=== PATIENT | female | born 1960 | race Caucasian/White ===

== ENCOUNTER 2018-01-24 07:47 | Day surgery (SDC) | payer OTHER ==
[2018-01-21 16:30] LABS: BASOPHILS # (AUTO) 0.1 X10'3 (0-0.2); BASOPHILS % (AUTO) 0.9 % (0-1); EOSINOPHILS # (AUTO) 0.2 X10'3 (0-0.9); EOSINOPHILS % (AUTO) 1.8 % (0-6); LYMPHOCYTES # (AUTO) 2.8 X10'3 (1.1-4.8); LYMPHOCYTES % (AUTO) 27.1 % (21-51); MEAN CORPUSCULAR HEMOGLOBIN 31.3 PG (27.0-31.0); MEAN CORPUSCULAR HGB CONC 33.4 % (33.0-36.5); MEAN CORPUSCULAR VOLUME 93.9 FL (78-98); MEAN PLATELET VOLUME 7.8 FL (7.4-10.4); MONOCYTES # (AUTO) 0.7 X10'3 (0-0.9); MONOCYTES % (AUTO) 6.9 % (2-12); NEUTROPHILS # (AUTO) 6.6 X10'3 (1.8-7.7); NEUTROPHILS % (AUTO) 63.3 % (42-75); PRE OP HEMATOCRIT 44.1 % (35.0-45.0); PRE OP HEMOGLOBIN 14.7 g/dL (12.0-16.0); PRE OP PLATELET COUNT 349 X10'3 (140-440); RED CELL DISTRIBUTION WIDTH 12.5 % (11.5-14.5)
[2018-01-21 16:50] LABS: CLARITY,URINE SLIGHTLY CLOUDY (Clear); COLOR,URINE YELLOW (Yellow); GLUCOSE, URINE NEGATIVE (Neg); KETONES,URINE NEGATIVE (Neg); LEUKOCYTE ESTERASE ,URINE NEGATIVE (Neg); NITRITES, URINE NEGATIVE (Neg); OCCULT BLOOD,URINE NEGATIVE (Neg); PH,URINE 7.5 (4.8-8.0); PROTEIN,URINE NEGATIVE (Neg); UROBILINOGEN,URINE 0.2 E.U/dL (0.2-1.0)
[2018-01-21 16:51] LABS: UA COLLECTION TYPE CLN CATCH MIDSTREAM
[2018-01-21 17:00] LABS: MUCUS STRANDS FEW /LPF (Neg); SQUAMOUS EPITHELIAL CELL,UR FEW /LPF (FEW)
[2018-01-21 17:01] LABS: BACTERIA,URINE FEW /HPF (Neg); RBC,URINE 0-2 /HPF (0-2); WBC,URINE 0-4 /HPF (0-4)
[2018-01-21 17:02] LABS: ALKALINE PHOSPHATASE 59 IU/L (46-116); BLOOD UREA NITROGEN 12 MG/DL (7-18); BUN/CREATININE RATIO 15.4 (6.6-38.0); CALCIUM 9.7 MG/DL (8.5-10.1); CHLORIDE 101 MMOL/L (99-107); CREATININE 0.78 MG/DL (0.40-0.90); PRE OP ALT 39 U/L (30-65); PRE OP ANION GAP 9 (8-16); PRE OP AST 24 U/L (10-37); PRE OP BILIRUB, TOTAL 0.5 MG/DL (0.0-1.0); PRE OP GLUCOSE 103 MG/DL (70-104); PRE OP POTASSIUM 3.8 MMOL/L (3.4-5.1); PRE OP SODIUM 141 MMOL/L (135-145); TOTAL CARBON DIOXIDE 30.6 MMOL/L (24-32); eGFR 76 ML/MIN
[~2018-01-24] VITALS: Ht 167.6 cm; Wt 85.5 kg
[~2018-01-24 07:47] MED LIST: ALPR0.5T9 PO; ARIP5TAB4 PO; ASCO500C15 PO; BUSP15TA14 PO; DULO-31 PO; GABA-532 PO; GLUC100017 PO; KRIL500C PO; LIOT50TA3 PO; MULT-38 PO; VITE1000C PO; ceFOXitin 2 GM ADDvantage bag 100 ML IV ONE; famotidine 20mg tablet PO ONE; ringers solution, lacted 1,000 ML IV SCH
[2018-01-24 08:15] VITALS: BP 131/77
[2018-01-24] MEDS ORDERED: morphine 4 MG/ML inj SYRINge IV PRN ×2 (08:25)
[2018-01-24] MEDS ORDERED: ringers solution, lacted 1,000 ML IV SCH (08:25)
[2018-01-24] MEDS ORDERED: meperidine/PF 25mg/ml syringe IV PRN ×2 (08:25)
[2018-01-24] MEDS ORDERED: ondansetron/PF 4mg/2ml inj IV PRN (08:25)
[2018-01-24] MEDS ORDERED: proCHLORperazine 10 MG/2 ml inj IV PRN (08:25)
[2018-01-24] MEDS ORDERED: dexamethasone sod phosphate 10mg/ml inj ONE (09:55)
[2018-01-24] MEDS ORDERED: sevoflurane 250ml liquid IH ONE (09:55)
[2018-01-24] MEDS ORDERED: midazolam 2 mg/2 ml injection ONE (10:01)
[2018-01-24] MEDS ORDERED: fentaNYL/PF 50MCG/1 ML 2ML syringe ONE (10:01)
[2018-01-24] MEDS ORDERED: ondansetron/PF 4mg/2ml inj ONE (10:09)
[2018-01-24] MEDS ORDERED: LIDOcaine 1%/PF 5ML 10 MG/ML VIAL ONE (10:09)
[2018-01-24] MEDS ORDERED: propofol inj 20 ML IV ONE (10:09)
[2018-01-24] MEDS ORDERED: ketorolac trometh. 30mg/ml inj. ONE (11:08)
[2018-01-24 11:40] VITALS: BP 152/88
[2018-01-24] MEDS: meperidine/PF 25mg/ml syringe IV PRN ×2 (11:48→12:11)
[2018-01-24 11:50] VITALS: BP 158/97
[2018-01-24 12:00] VITALS: BP 146/83
[2018-01-24 12:10] VITALS: BP 135/59
[2018-01-24 12:20] VITALS: BP 136/64
== END 2018-01-24 12:35 | disposition home or self-care (01) ==
LOC: PAS 07:47
PROVIDERS: ATTEND Obstetrics & Gynecology Obstetrics
DX: D25.0 Submucous leiomyoma of uterus (principal); N85.8 Other specified noninflammatory disorders of uterus; N95.0 Postmenopausal bleeding; F41.8 Other specified anxiety disorders; F32.9 Major depressive disorder, single episode, unspecified; F43.10 Post-traumatic stress disorder, unspecified; G47.33 Obstructive sleep apnea (adult) (pediatric); E89.0 Postprocedural hypothyroidism; E66.9 Obesity, unspecified; G89.29 Other chronic pain; M19.90 Unspecified osteoarthritis, unspecified site; Z68.30 Body mass index [BMI] 30.0-30.9, adult; Z87.891 Personal history of nicotine dependence; Z87.09 Personal history of other diseases of the respiratory system; Z90.49 Acquired absence of other specified parts of digestive tract; Z90.89 Acquired absence of other organs; Z79.891 Long term (current) use of opiate analgesic; Z79.1 Long term (current) use of non-steroidal anti-inflammatories (NSAID); Z91.048 Other nonmedicinal substance allergy status; Z79.899 Other long term (current) drug therapy; Z98.890 Other specified postprocedural states
CPT/HCPCS: 36415; 58561; 71046; 80053; 81001; 85025; 86885; 86900; 86901; 93005; J0694; J1100; J1885; J2001; J2175; J2250; J2405; J2704; J3010; J7030; J7120; A4355; A7000

== ENCOUNTER 2018-10-09 10:36 | Outpatient (CLI) | payer OTHER ==
[~2018-10-09 10:36] MED LIST changes: -BUSP15TA14 PO; +BUSP15TA8 PO; -LIOT50TA3 PO; +LIOT50TA6 PO; -ceFOXitin 2 GM ADDvantage bag 100 ML IV ONE; -famotidine 20mg tablet PO ONE; -ringers solution, lacted 1,000 ML IV SCH
== END 2018-10-09 23:59 | disposition home or self-care (01) ==
LOC: RAD 10:36
PROVIDERS: ATTEND Family Medicine
DX: M25.561 Pain in right knee (principal)
CPT/HCPCS: 73721

== ENCOUNTER 2019-03-15 13:38 | Emergency (ER) | payer OTHER ==
[~2019-03-15] VITALS: Ht 167.6 cm; Wt 101.0 kg
[~2019-03-15 13:38] MED LIST changes: +ARIP5TAB14 PO; -ARIP5TAB4 PO
[2019-03-15 13:42] VITALS: BP 157/99
[2019-03-15] MEDS ORDERED: ketorolac trometh inj. 60 MG/2 ML VIAL IM ONE (14:05)
--- NOTE | 2019-03-15 14:59 | NUR ---
pt discharged before rap assessment done
== END 2019-03-15 14:59 | disposition home or self-care (01) ==
LOC: ER 13:39
DX: S83.92XA Sprain of unspecified site of left knee, initial encounter (principal); S09.90XA Unspecified injury of head, initial encounter; Z79.899 Other long term (current) drug therapy; Y93.89 Activity, other specified; Y92.89 Other specified places as the place of occurrence of the external cause; Y99.9 Unspecified external cause status
CPT/HCPCS: 73564; 96372; 99283; J1885

== ENCOUNTER 2019-04-04 14:57 | Outpatient (CLI) | payer OTHER | END 2019-04-04 23:59 | disposition home or self-care (01) | LOC: RAD 14:57 | PROVIDERS: ATTEND Family Medicine | DX: S83.212A Bucket-handle tear of medial meniscus, current injury, left knee, initial encounter (principal); M94.262 Chondromalacia, left knee; S80.02XA Contusion of left knee, initial encounter; M25.462 Effusion, left knee; X58.XXXA Exposure to other specified factors, initial encounter; Y93.89 Activity, other specified; Y92.89 Other specified places as the place of occurrence of the external cause; Y99.8 Other external cause status | CPT/HCPCS: 73721 ==

== ENCOUNTER 2019-08-07 05:34 | Day surgery (SDC) | payer OTHER ==
[2019-07-30 11:08] LABS: BASOPHILS # (AUTO) 0.1 X10'3 (0-0.2); BASOPHILS % (AUTO) 1.1 % (0-1); EOSINOPHILS # (AUTO) 0.3 X10'3 (0-0.9); EOSINOPHILS % (AUTO) 3.5 % (0-6); LYMPHOCYTES # (AUTO) 1.9 X10'3 (1.1-4.8); LYMPHOCYTES % (AUTO) 22.9 % (21-51); MEAN CORPUSCULAR HEMOGLOBIN 32.6 PG (27.0-31.0); MEAN CORPUSCULAR HGB CONC 33.4 g/dL (33.0-36.5); MEAN CORPUSCULAR VOLUME 97.7 FL (78-98); MEAN PLATELET VOLUME 7.5 FL (7.4-10.4); MONOCYTES # (AUTO) 0.8 X10'3 (0-0.9); MONOCYTES % (AUTO) 9.5 % (2-12); NEUTROPHILS # (AUTO) 5.2 X10'3 (1.8-7.7); PRE OP HEMATOCRIT 44.1 % (35.0-45.0); PRE OP HEMOGLOBIN 14.7 g/dL (12.0-16.0); PRE OP PLATELET COUNT 320 X10'3 (140-440); RED BLOOD COUNT 4.51 X10'6 (4.20-5.60); RED CELL DISTRIBUTION WIDTH 13.4 % (11.5-14.5)
[2019-07-30 11:21] LABS: ALBUMIN 3.9 G/DL (3.4-5.0); ALKALINE PHOSPHATASE 71 IU/L (46-116); BLOOD UREA NITROGEN 10 MG/DL (7-18); BUN/CREATININE RATIO 10.4 (6.6-38.0); CALCIUM 9.5 MG/DL (8.5-10.1); CHLORIDE 101 MMOL/L (99-107); CREATININE 0.96 MG/DL (0.40-0.90); PRE OP ALT 39 U/L (30-65); PRE OP ANION GAP 5 (8-16); PRE OP AST 43 U/L (10-37); PRE OP BILIRUB, TOTAL 0.5 MG/DL (0.0-1.0); PRE OP GLUCOSE 119 MG/DL (70-104); PRE OP POTASSIUM 4.1 MMOL/L (3.4-5.1); PRE OP SODIUM 141 MMOL/L (135-145); TOTAL PROTEIN 7.8 G/DL (6.4-8.2); eGFR 59 ML/MIN
[~2019-08-07] VITALS: Ht 167.6 cm; Wt 90.7 kg
[2019-08-07] VITALS (9 sets, daily range): BP systolic 120–172; BP diastolic 70–100
[~2019-08-07 05:34] MED LIST changes: -ASCO500C15 PO; +CETI-194 PO; -GLUC100017 PO; -KRIL500C PO; -LIOT50TA6 PO; +MAGN400C PO; -MULT-38 PO; +NAPR-56 PO; +TRAZ-256 PO; -VITE1000C PO; +cefazolin/dext.iso 2gm/50ml 50 ML IV ONE; +famotidine 20mg tablet PO ONE; +ringers solution, lacted 1,000 ML IV SCH; +vancomycin 1,500 MG in NS 500ml IV soln IV ONE
[2019-08-07] MEDS ORDERED: LIDOcaine 1% (10mg/ml) 2ml vial ONE (05:59)
[2019-08-07] MEDS ORDERED: BUPIVAcaine/PF 2.5 mg/ml (0.25%) 30ml vial ONE (06:49)
[2019-08-07] MEDS ORDERED: cloNIDine hcl/PF 100mcg/ml inj ONE (07:14)
[2019-08-07] MEDS ORDERED: sevoflurane 250ml liquid IH ONE (07:18)
[2019-08-07] MEDS ORDERED: fentaNYL/PF 50MCG/1 ML 2ML syringe ONE (07:24)
[2019-08-07] MEDS ORDERED: midazolam 2 mg/2 ml injection ONE (07:25)
[2019-08-07] MEDS ORDERED: ringers solution, lacted 1,000 ML IV SCH (07:43)
[2019-08-07] MEDS ORDERED: proCHLORperazine 10 MG/2 ml inj IV PRN (07:45)
[2019-08-07] MEDS ORDERED: morphine 4 MG/ML inj SYRINge IV PRN (07:45)
[2019-08-07] MEDS ORDERED: meperidine/PF 25mg/ml syringe IV PRN (07:45)
[2019-08-07] MEDS ORDERED: labetalol 5mg/ml 20ml inj. IV PRN (07:45)
[2019-08-07] MEDS ORDERED: morphine 2 MG/ML inj. syringe IV PRN (07:45)
[2019-08-07] MEDS ORDERED: labetalol 20mg/4ml (5mg/ml) syringe IV PRN (07:45)
[2019-08-07] MEDS ORDERED: HYDROmorphone inj. 0.5 MG/0.5 ML DISP.SYRIN IV PRN ×2 (07:45)
[2019-08-07] MEDS ORDERED: ondansetron/PF 4mg/2ml inj IV PRN (07:45)
[2019-08-07] MEDS ORDERED: acetaminophen 1,000mg/100ml IV 100 ML IV PRN (07:45)
[2019-08-07] MEDS ORDERED: ROPIVAcaine 0.5% (5mg/ml) 30ml vial ONE (07:50)
[2019-08-07] MEDS ORDERED: LIDOcaine 1%/PF 5ML 10 MG/ML VIAL ONE (07:50)
[2019-08-07] MEDS ORDERED: LIDOcaine 2% (20mg/ml) 5ml vial ONE (07:50)
[2019-08-07] MEDS ORDERED: propofol inj 20 ML IV ONE (07:50)
[2019-08-07] MEDS ORDERED: dexamethasone sod phosphate 4mg/ml inj. ONE ×2 (07:50)
[2019-08-07] MEDS ORDERED: ondansetron/PF 4mg/2ml inj ONE (07:51)
[2019-08-07] MEDS ORDERED: ePHEDrine 50MG/ML INJ. ONE (07:53)
[2019-08-07] MEDS ORDERED: 0.9 % SODIUM CHLORIDE 10 ML VIAL ONE (07:54)
[2019-08-07] MEDS ORDERED: morphine 10mg/ml inj. ONE (08:18)
--- NOTE | 2019-08-07 09:54 | NUR ---
Received from OR via [facility] , accompanied by DR PAZ Anesthesiologist and report given by Anesthesiologist. VSS. SLEEPING COMFORTABLY. LEFT KNEE DSG CDI WITH LOCKED HINGE KNEE BRACE PRESENT. ICE APPLIED TO LEFT KNEE WITH LLE ELEVATED. LEFT FOOT WARM WITH STRONG PULSES PRESENT. IV PATENT #20 RIGHT HAND WITH LR 100MLS/HR
[2019-08-07] MEDS ORDERED: HYDROcodone/acetaminophen 10/325mg tab PO ONE (10:30)
--- NOTE | 2019-08-07 11:14 | NUR ---
VSS. STATES ADEQUATE PAIN RELIEF AND READINESS TO GO HOME. LEDT KNEE DSG CDI WITH LOCKED KNEE BRACE PRESENT AND ICE TO AREA. STRONG LEFT PEDAL PULSE WITH WARM FOOT. TOLERATING PO WELL. IV DC'D WITH CANNULA INTACT AND PRESSURE DSG APPLIED. DC INSTRUCTIONS REVIEWED WITH PT AND EVERARDO WHO BOTH VERBALIZED UNDERSTANDING. PT HAS WALKER AT HOME TO USE UNTIL LLE BLOCK WEARS OFF. DC HOME VIA WC TO PVT AUTO WITH EVERARDO TO RECEIVE. Addendum: 08/07/19 at 1129 by Shweta Schumacher RN Amended: Links added.
== END 2019-08-07 11:14 | disposition home or self-care (01) ==
LOC: PAS 05:34
PROVIDERS: ATTEND Orthopaedic Surgery
DX: S83.512A Sprain of anterior cruciate ligament of left knee, initial encounter (principal); S83.242A Other tear of medial meniscus, current injury, left knee, initial encounter; S83.282A Other tear of lateral meniscus, current injury, left knee, initial encounter; M94.262 Chondromalacia, left knee; M17.12 Unilateral primary osteoarthritis, left knee; G47.33 Obstructive sleep apnea (adult) (pediatric); F43.10 Post-traumatic stress disorder, unspecified; F41.8 Other specified anxiety disorders; G89.4 Chronic pain syndrome; J45.909 Unspecified asthma, uncomplicated; I10 Essential (primary) hypertension; G89.18 Other acute postprocedural pain; E66.9 Obesity, unspecified; Z68.32 Body mass index [BMI] 32.0-32.9, adult; Z98.890 Other specified postprocedural states; Z91.09 Other allergy status, other than to drugs and biological substances; Z79.899 Other long term (current) drug therapy; Z87.891 Personal history of nicotine dependence; Z72.89 Other problems related to lifestyle; X58.XXXA Exposure to other specified factors, initial encounter; Y93.89 Activity, other specified; Y92.89 Other specified places as the place of occurrence of the external cause; Y99.8 Other external cause status
CPT/HCPCS: 29873; 29879; 29880; 29888; 36415; 64447; 80053; 82948; 85025; 93005; C1713; C1776; J0735; J1100; J1170; J2001; J2250; J2270; J2405; J2704; J3010; J3370; J3490; J7040; J7120; L1832; A4215; A4618; A6250; A6449; J2795

== ENCOUNTER 2020-07-09 09:05 | Outpatient (CLI) | payer OTHER ==
[~2020-07-09 09:05] MED LIST changes: -cefazolin/dext.iso 2gm/50ml 50 ML IV ONE; -famotidine 20mg tablet PO ONE; -ringers solution, lacted 1,000 ML IV SCH; -vancomycin 1,500 MG in NS 500ml IV soln IV ONE
== END 2020-07-09 23:59 | disposition home or self-care (01) ==
LOC: RAD 09:05
PROVIDERS: ATTEND Orthopaedic Surgery
DX: S83.242A Other tear of medial meniscus, current injury, left knee, initial encounter (principal); M25.462 Effusion, left knee; M67.52 Plica syndrome, left knee; R60.9 Edema, unspecified; M79.4 Hypertrophy of (infrapatellar) fat pad; G89.4 Chronic pain syndrome; F41.8 Other specified anxiety disorders; M17.12 Unilateral primary osteoarthritis, left knee; M79.2 Neuralgia and neuritis, unspecified; E66.8 Other obesity; I10 Essential (primary) hypertension; X58.XXXD Exposure to other specified factors, subsequent encounter; X58.XXXA Exposure to other specified factors, initial encounter; Y93.89 Activity, other specified; Y92.89 Other specified places as the place of occurrence of the external cause; Y99.8 Other external cause status
CPT/HCPCS: 73721

== ENCOUNTER 2020-10-21 06:55 | Day surgery (SDC) | payer OTHER ==
[2020-10-13 15:34] LABS: BASOPHILS # (AUTO) 0.1 X10'3 (0-0.2); BASOPHILS % (AUTO) 1.5 % (0-1); EOSINOPHILS # (AUTO) 0.3 X10'3 (0-0.9); EOSINOPHILS % (AUTO) 3.7 % (0-6); LYMPHOCYTES # (AUTO) 2.5 X10'3 (1.1-4.8); LYMPHOCYTES % (AUTO) 32.5 % (21-51); MEAN CORPUSCULAR HEMOGLOBIN 33.4 PG (27.0-31.0); MEAN PLATELET VOLUME 7.8 FL (7.4-10.4); MONOCYTES # (AUTO) 0.5 X10'3 (0-0.9); MONOCYTES % (AUTO) 6.1 % (2-12); NEUTROPHILS # (AUTO) 4.3 X10'3 (1.8-7.7); NEUTROPHILS % (AUTO) 56.2 % (42-75); PRE OP HEMATOCRIT 43.9 % (35.0-45.0); PRE OP HEMOGLOBIN 14.9 g/dL (12.0-16.0); PRE OP PLATELET COUNT 303 X10'3 (140-440); RED BLOOD COUNT 4.48 X10'6 (4.20-5.60); RED CELL DISTRIBUTION WIDTH 12.8 % (11.5-14.5)
[2020-10-13 15:52] LABS: ALBUMIN 3.8 G/DL (3.4-5.0); ALKALINE PHOSPHATASE 67 IU/L (46-116); BLOOD UREA NITROGEN 8 MG/DL (7-18); BUN/CREATININE RATIO 9.8 (6.6-38.0); CALCIUM 8.6 MG/DL (8.5-10.1); CHLORIDE 100 MMOL/L (99-107); CREATININE 0.82 MG/DL (0.40-0.90); PRE OP ALT 40 U/L (30-65); PRE OP ANION GAP 11 (8-16); PRE OP AST 46 U/L (10-37); PRE OP BILIRUB, TOTAL 0.6 MG/DL (0.0-1.0); PRE OP GLUCOSE 113 MG/DL (70-104); PRE OP POTASSIUM 3.5 MMOL/L (3.4-5.1); PRE OP SODIUM 139 MMOL/L (135-145); TOTAL PROTEIN 7.7 G/DL (6.4-8.2); eGFR 71 ML/MIN
[~2020-10-21] VITALS: Ht 167.6 cm; Wt 90.0 kg
[2020-10-21] VITALS (7 sets, daily range): BP systolic 134–161; BP diastolic 71–105
[~2020-10-21 06:55] MED LIST changes: +ALPR-624 PO; -ALPR0.5T9 PO; -CETI-194 PO; +DICL20GE TOP; +HYDR-3973 PO; -MAGN400C PO; -NAPR-56 PO; +cefazolin/dext.iso 2gm/100ml IV ONE; +famotidine 20mg tablet PO ONE; +ringers solution, lacted 1,000 ML IV SCH; +vancomycin 1,500 MG in NS 300ml IV soln IV ONE
[2020-10-21] MEDS ORDERED: midazolam 1 mg/ML 2ml injection ONE (09:59)
[2020-10-21] MEDS ORDERED: fentaNYL /PF 50mcg/ml 5ml ampule ONE (09:59)
[2020-10-21] MEDS ORDERED: LIDOcaine 2% (20mg/ml) 5ml vial ONE (10:01)
[2020-10-21] MEDS ORDERED: propofol inj 20 ML IV ONE (10:01)
[2020-10-21] MEDS ORDERED: BUPIVAcaine/PF 2.5mg/ml (0.25%) 10ml vial ONE (10:06)
[2020-10-21] MEDS ORDERED: meperidine/PF 25mg/ml syringe IV PRN ×3 (10:15)
[2020-10-21] MEDS ORDERED: proCHLORperazine 10 MG/2 ml inj IV PRN (10:15)
[2020-10-21] MEDS ORDERED: ringers solution, lacted 1,000 ML IV SCH (10:15)
[2020-10-21] MEDS ORDERED: morphine 4 MG/ML inj SYRINge IV PRN (10:15)
[2020-10-21] MEDS ORDERED: ondansetron/PF 4mg/2ml inj IV PRN (10:15)
[2020-10-21] MEDS ORDERED: morphine 2 MG/ML inj. syringe IV PRN (10:15)
[2020-10-21] MEDS ORDERED: sevoflurane 250ml liquid IH ONE (10:41)
[2020-10-21] MEDS ORDERED: dexamethasone 4mg/ml inj ONE (10:41)
[2020-10-21] MEDS ORDERED: ketamine 50mg/5ml syringe ONE (11:07)
[2020-10-21] MEDS ORDERED: acetaminophen 1,000mg/100ml IV 100 ML IV ONE (11:42)
[2020-10-21] MEDS ORDERED: hydrALAZINE 20mg/ml inj. IV ONE (11:42)
[2020-10-21] MEDS ORDERED: meperidine/PF 25mg/ml syringe ONE (11:44)
[2020-10-21] MEDS ORDERED: ketorolac trometh. 30mg/ml inj. ONE (11:52)
--- NOTE | 2020-10-21 12:00 | NUR ---
Received from OR via , accompanied by Anesthesiologist DR CHOUDHARY and report given by Anesthesiolgist. AWAKENS TO VOICE. VITALS STABLE. DRESSING DI. ASHLEE PAIN.
--- NOTE | 2020-10-21 13:00 | NUR ---
AWAKEN AND ORIENTED. VITALS STABLE. DRESSING DI. ASHLEE PAIN. HOME WITH A FRIEND AT THIS TIME.
== END 2020-10-21 13:00 | disposition home or self-care (01) ==
LOC: PAS 06:55
PROVIDERS: ATTEND Orthopaedic Surgery
DX: T84.84XA Pain due to internal orthopedic prosthetic devices, implants and grafts, initial encounter (principal); M94.262 Chondromalacia, left knee; G89.4 Chronic pain syndrome; I10 Essential (primary) hypertension; E66.9 Obesity, unspecified; Z68.32 Body mass index [BMI] 32.0-32.9, adult; M17.12 Unilateral primary osteoarthritis, left knee; G47.33 Obstructive sleep apnea (adult) (pediatric); F41.9 Anxiety disorder, unspecified; F32.9 Major depressive disorder, single episode, unspecified; Z91.09 Other allergy status, other than to drugs and biological substances; Z79.899 Other long term (current) drug therapy; Z87.891 Personal history of nicotine dependence; Z98.890 Other specified postprocedural states; Y83.8 Other surgical procedures as the cause of abnormal reaction of the patient, or of later complication, without mention of misadventure at the time of the procedure; Y92.89 Other specified places as the place of occurrence of the external cause
CPT/HCPCS: 20680; 29877; 36415; 80053; 82948; 85025; 93005; J0131; J0360; J1100; J1885; J2001; J2175; J2250; J2704; J3010; J3370; J3490; J7040; Z7506; Z7508; Z7512; A4215; A4618; A6250; A6449; J7120

== ENCOUNTER 2020-10-31 07:07 | Emergency (ER) | payer OTHER ==
[~2020-10-31] VITALS: Ht 167.6 cm; Wt 92.0 kg
[~2020-10-31 07:07] MED LIST changes: -cefazolin/dext.iso 2gm/100ml IV ONE; -famotidine 20mg tablet PO ONE; -ringers solution, lacted 1,000 ML IV SCH; -vancomycin 1,500 MG in NS 300ml IV soln IV ONE
[2020-10-31] MEDS ORDERED: CefTRIAXone 2gm/D5W 50ml BAG 50 ML IV ONE (07:30)
[2020-10-31] MEDS ORDERED: vancomycin/NS 1 GM ADD-VANTAGE 250 ML IV ONE (07:30)
[2020-10-31 10:23] LABS: BASOPHILS # (AUTO) 0.1 X10'3 (0-0.2); BASOPHILS % (AUTO) 0.9 % (0-1); EOSINOPHILS # (AUTO) 0.3 X10'3 (0-0.9); EOSINOPHILS % (AUTO) 3.5 % (0-6); HEMATOCRIT 43.6 % (35.0-45.0); HEMOGLOBIN 14.7 g/dl (12.0-16.0); LYMPHOCYTES # (AUTO) 2.2 X10'3 (1.1-4.8); LYMPHOCYTES % (AUTO) 22.7 % (21-51); MEAN CORPUSCULAR HEMOGLOBIN 33.2 PG (27.0-31.0); MEAN CORPUSCULAR HGB CONC 33.7 g/dL (33.0-36.5); MEAN CORPUSCULAR VOLUME 98.5 FL (78-98); MEAN PLATELET VOLUME 8.2 FL (7.4-10.4); MONOCYTES # (AUTO) 1.2 X10'3 (0-0.9); MONOCYTES % (AUTO) 12.3 % (2-12); NEUTROPHILS # (AUTO) 5.8 X10'3 (1.8-7.7); NEUTROPHILS % (AUTO) 60.6 % (42-75); PLATELET COUNT 339 X10'3 (140-440); RED BLOOD COUNT 4.42 X10'6 (4.20-5.60); RED CELL DISTRIBUTION WIDTH 12.8 % (11.5-14.5); WHITE BLOOD COUNT 9.5 X10'3 (4.5-11.0)
[2020-10-31 10:35] LABS: ALANINE AMINOTRANSFERASE 31 U/L (12-78); ALBUMIN 3.8 G/DL (3.4-5.0); ALKALINE PHOSPHATASE 67 IU/L (46-116); ANION GAP 10 (8-16); ASPARTATE AMINO TRANSFERASE 22 U/L (10-37); BILIRUBIN,TOTAL 0.6 MG/DL (0.1-1.0); BLOOD UREA NITROGEN 10 MG/DL (7-18); BUN/CREATININE RATIO 13.3 (6.6-38.0); C-REACTIVE PROTEIN 2.33 MG/DL (0.0-0.5); CALCIUM 8.6 MG/DL (8.5-10.1); CHLORIDE 103 MMOL/L (99-107); CREATININE 0.75 MG/DL (0.40-0.90); GLUCOSE 128 MG/DL (70-104); POTASSIUM 4.1 MMOL/L (3.5-5.1); SODIUM 142 MMOL/L (135-145); TOTAL CARBON DIOXIDE 29.1 MMOL/L (24-32); TOTAL PROTEIN 7.7 G/DL (6.4-8.2); eGFR 79 ML/MIN
[2020-10-31] MEDS ORDERED: HYDROcodone/acetaminophen 10/325mg tab PO ONE (12:15)
[2020-10-31] MEDS ORDERED: CEPH-585 PO (13:39)
[2020-10-31] MEDS ORDERED: ONDA4TAB6 PO (13:39)
[2020-10-31] MEDS ORDERED: HYDR-3972 PO (13:39)
[2020-10-31] MEDS ORDERED: HYDR-3965 PO (14:27)
--- NOTE | 2020-10-31 14:36 | NUR ---
pt. was seen in the lobby. pt. given rocephin and vancomycin here. pt. given a norco for pain. pt. had a dressing change by floor waxer... pt. given rx for for keflex, zofran, and norco.
[2020-10-31 14:42] VITALS: BP 138/79
== END 2020-10-31 14:46 | disposition home or self-care (01) ==
LOC: ER 07:07 → EEVIPCON 07:07 → ER 14:46
DX: L03.116 Cellulitis of left lower limb (principal); G89.18 Other acute postprocedural pain; F41.9 Anxiety disorder, unspecified
CPT/HCPCS: 36415; 80053; 83605; 84145; 85025; 85651; 86140; 87040; 96365; 96366; 96367; 99284; J0696; J3370

== ENCOUNTER 2021-04-21 06:52 | Day surgery (SDC) | payer OTHER ==
[2021-04-13 11:48] LABS: BASOPHILS # (AUTO) 0.1 X10'3 (0-0.2); BASOPHILS % (AUTO) 1.1 % (0-1); EOSINOPHILS # (AUTO) 0.2 X10'3 (0-0.9); EOSINOPHILS % (AUTO) 2.2 % (0-6); LYMPHOCYTES # (AUTO) 2.2 X10'3 (1.1-4.8); LYMPHOCYTES % (AUTO) 24.5 % (21-51); MEAN CORPUSCULAR HEMOGLOBIN 34.1 PG (27.0-31.0); MEAN CORPUSCULAR HGB CONC 34.8 g/dL (33.0-36.5); MEAN CORPUSCULAR VOLUME 98.1 FL (78-98); MEAN PLATELET VOLUME 7.3 FL (7.4-10.4); MONOCYTES # (AUTO) 0.7 X10'3 (0-0.9); MONOCYTES % (AUTO) 8.2 % (2-12); NEUTROPHILS # (AUTO) 5.8 X10'3 (1.8-7.7); PRE OP HEMATOCRIT 46.6 % (35.0-45.0); PRE OP HEMOGLOBIN 16.2 g/dL (12.0-16.0); PRE OP PLATELET COUNT 311 X10'3 (140-440); RED BLOOD COUNT 4.75 X10'6 (4.20-5.60); RED CELL DISTRIBUTION WIDTH 13.1 % (11.5-14.5)
[2021-04-13 12:42] LABS: ALBUMIN 3.9 G/DL (3.4-5.0); ALBUMIN/GLOBULIN RATIO 1.1 (1.1-1.5); ALKALINE PHOSPHATASE 71 IU/L (46-116); BLOOD UREA NITROGEN 8 MG/DL (7-18); BUN/CREATININE RATIO 10.8 (6.6-38.0); CALCIUM 8.8 MG/DL (8.5-10.1); CHLORIDE 99 MMOL/L (99-107); CREATININE 0.74 MG/DL (0.40-0.90); PRE OP ANION GAP 11 (8-16); PRE OP AST 107 U/L (10-37); PRE OP BILIRUB, TOTAL 0.6 MG/DL (0.0-1.0); PRE OP GLUCOSE 161 MG/DL (70-104); PRE OP POTASSIUM 4.1 MMOL/L (3.4-5.1); PRE OP SODIUM 137 MMOL/L (135-145); TOTAL CARBON DIOXIDE 27.2 MMOL/L (24-32); TOTAL PROTEIN 7.6 G/DL (6.4-8.2); eGFR 80 ML/MIN
[2021-04-13 12:50] LABS: PRE OP ALT 86 U/L (30-65)
[2021-04-21] VITALS (13 sets, daily range): BP systolic 138–180; BP diastolic 82–106
[~2021-04-21] VITALS: Ht 167.6 cm; Wt 88.6 kg
[~2021-04-21 06:52] MED LIST changes: -ALPR-624 PO; +ONDA4TAB6 PO; +cefazolin/dext.iso 2gm/50ml IV ONE; +famotidine 20mg tablet PO ONE; +ringers solution, lacted 1,000 ML IV SCH; +vancomycin 1,500 MG in NS 300ml IV soln IV ONE
[2021-04-21] MEDS ORDERED: BUPIVAcaine 0.5% inj/PF 30 ML ONE (08:27)
[2021-04-21] MEDS ORDERED: ondansetron/PF 4mg/2ml inj ONE (08:30)
[2021-04-21] MEDS ORDERED: LIDOcaine 1%/PF 5ML 10 MG/ML VIAL ONE (08:30)
[2021-04-21] MEDS ORDERED: sevoflurane 250ml liquid IH ONE (08:30)
[2021-04-21] MEDS ORDERED: midazolam 1 mg/ML 2ml injection ONE (08:31)
[2021-04-21] MEDS ORDERED: fentaNYL /PF 50mcg/ml 5ml ampule ONE (08:31)
[2021-04-21] MEDS ORDERED: ringers solution, lacted 1,000 ML IV SCH (10:05)
[2021-04-21] MEDS ORDERED: morphine 2 MG/ML inj. syringe IV PRN (10:05)
[2021-04-21] MEDS ORDERED: meperidine/PF 25mg/ml syringe IV PRN ×2 (10:05)
[2021-04-21] MEDS ORDERED: morphine 4 MG/ML inj SYRINge IV PRN (10:05)
[2021-04-21] MEDS ORDERED: proCHLORperazine 10 MG/2 ml inj IV PRN (10:05)
[2021-04-21] MEDS ORDERED: ondansetron/PF 4mg/2ml inj IV PRN (10:05)
[2021-04-21] MEDS ORDERED: propofol inj 20 ML IV ONE (11:26)
[2021-04-21] MEDS ORDERED: morphine 4 MG/ML inj SYRINge ONE (11:27)
[2021-04-21] MEDS ORDERED: ROPIVAcaine 0.5% (5mg/ml) 30ml vial ONE ×2 (11:38→11:39)
[2021-04-21] MEDS ORDERED: dexamethasone sod phosphate 4mg/ml inj. ONE (11:39)
[2021-04-21] MEDS ORDERED: labetalol 20mg/4ml (5mg/ml) syringe IV ONE ×2 (12:07→12:50)
--- NOTE | 2021-04-21 12:22 | NUR ---
Received from OR via [facility], accompanied by Anesthesiologist Ester and report given by Anesthesiolgist. VS MD CAMILA states she was hypertensive and to treat with albetalol if SBP above 180. Mask to 10L sats 97%. Palpable pulse distal of surgical site. Left knee dressed with knee brace in extesnion locked, on-q catheter present, ice pack in place. 20G LR 100cc/hr.
[2021-04-21] MEDS ORDERED: ROPIVAcaine 0.2%/PF PUMP/bolus 545 ML ADDCANAL SCH (12:25)
[2021-04-21] MEDS ORDERED: ROPIVAcaine 0.2% (10 MG/5 ML) BOLUS INJECTION ADDCANAL PRN (12:25)
[2021-04-21] MEDS: meperidine/PF 25mg/ml syringe IV PRN ×2 (12:57→13:18)
[2021-04-21] MEDS ORDERED: oxyCODONE/APAP 10/325mg tablet PO ONE (13:50)
[2021-04-21] MEDS ORDERED: acetaminophen 1,000mg/100ml IV 100 ML IV ONE (13:50)
[2021-04-21] MEDS ORDERED: ketorolac trometh. 30mg/ml inj. IV ONE (13:50)
--- NOTE | 2021-04-21 15:22 | NUR ---
Pt discharged to vehicle by wheelchair without incident. IV was DC'd, all belongings returned to patient. She and her partner verbalised understanding of all DC instructions including ON-Q pain ball use and discontinuation. Her pain was a 4/10 upon discsharge and she states this is tolerable. She had a percocet at 2:15pm and knows to check orders for how long she has to wait until the next dose. Dressing remains CDI and brace in place.
== END 2021-04-21 15:22 | disposition home or self-care (01) ==
LOC: PAS 06:52
PROVIDERS: ATTEND Orthopaedic Surgery
DX: S83.512A Sprain of anterior cruciate ligament of left knee, initial encounter (principal); S83.282A Other tear of lateral meniscus, current injury, left knee, initial encounter; M17.12 Unilateral primary osteoarthritis, left knee; G89.18 Other acute postprocedural pain; I10 Essential (primary) hypertension; G47.30 Sleep apnea, unspecified; F41.9 Anxiety disorder, unspecified; F32.A Depression, unspecified; E66.8 Other obesity; Z68.32 Body mass index [BMI] 32.0-32.9, adult; Z79.899 Other long term (current) drug therapy; Z91.09 Other allergy status, other than to drugs and biological substances; Z98.890 Other specified postprocedural states; Z87.891 Personal history of nicotine dependence; Z72.89 Other problems related to lifestyle; Z20.822 Contact with and (suspected) exposure to COVID-19; X58.XXXA Exposure to other specified factors, initial encounter; Y93.89 Activity, other specified; Y92.89 Other specified places as the place of occurrence of the external cause; Y99.8 Other external cause status
CPT/HCPCS: 29881; 29888; 36415; 64448; 76942; 80053; 82948; 85025; C1713; C1762; C1769; J0131; J0690; J1100; J1885; J2175; J2250; J2270; J2405; J2704; J2795; J3010; J3370; J3490; J7040; J7120; L1832; S0020; U0003; U0005; Z7506; Z7508; A4215; A4618; A6250; A6449

== ENCOUNTER 2022-01-11 12:58 | Outpatient (CLI) | payer BC ==
[~2022-01-11 12:58] MED LIST changes: -cefazolin/dext.iso 2gm/50ml IV ONE; -famotidine 20mg tablet PO ONE; -ringers solution, lacted 1,000 ML IV SCH; -vancomycin 1,500 MG in NS 300ml IV soln IV ONE
== END 2022-01-11 23:59 | disposition home or self-care (01) ==
LOC: RAD 12:58
PROVIDERS: ATTEND Family Medicine
DX: M19.041 Primary osteoarthritis, right hand (principal)
CPT/HCPCS: 73140